=== PATIENT | female | born 1975 | race Caucasian/White ===

== ENCOUNTER 2018-05-30 15:30 | Emergency (ER) | payer OTHER ==
[~2018-05-30] VITALS: Ht 167.6 cm; Wt 80.4 kg
[2018-05-30 15:35] VITALS: Ht 167.6 cm; Wt 80.4 kg
[2018-05-30] MEDS ORDERED: SOD CHLORIDE 0.9% 1,000 ML IV STA (19:41)
--- NOTE | 2018-05-30 19:57 | ERD ---
ER Documentation Chief Complaint Chief Complaint chest tingliing & pressure w/left facial numbness x3days, s/p iron infusion HPI This is a 42-year-old female with a history of thrombocytosis secondary to iron deficiency anemia. The patient states she received an intravenous iron infusion 3 days ago and since then has been having some vague symptoms that have gotten worse she says she gets a bit short of breath when she walks too far but is not having any chest pain.. She also complains of some vague tingling to her left face and upper and lower lips. No weakness or tingling in the arms and legs. She was sent by her doctor for evaluation, Dr. Brittanie RENTERIA IN. ROS All systems reviewed and are negative except as per history of present illness. Medications Home Meds Reported Medications Loratadine* (Loratadine*) 10 Mg Tablet, 10 MG PO DAILY for 30 Days, #30 05/30/18 Lisinopril* (Lisinopril*) 20 Mg Tablet, 20 MG PO DAILY for 30 Days 05/30/18 Atorvastatin Calcium (Atorvastatin Calcium) 20 Mg Tablet, 20 MG PO QHS for 30 Days 05/30/18 Sumatriptan Succinate* (Sumatriptan Succinate*) 100 Mg Tablet, 100 MG PO PRN for HEADACHE 05/30/18 Aspirin (Aspir-Low) 81 Mg Tablet.dr, 81 MG PO DAILY for 30 Days 05/30/18 Ergocalciferol (Vitamin D2) (VITAMIN D2) 50,000 Unit Capsule, 1 CAP PO Q7D for QTUESDAY 05/30/18 Nitroglycerin* (Nitrostat*) 0.4 Mg Tab.subl, 0.4 MG SL Q5MIN PRN for CHEST PAIN, BOTTLE 05/30/18 Nortriptyline Hcl* (Nortriptyline Hcl*) 10 Mg Capsule, 10 MG PO DAILY 05/30/18 Allergies Allergies: Coded Allergies: Penicillins (Verified Allergy, Unknown, 05/30/18) PMhx/Soc History of Surgery: No Anesthesia Reaction: No Hx Neurological Disorder: No Hx Respiratory Disorders: No Hx Cardiac Disorders: No Hx Psychiatric Problems: No Hx Miscellaneous Medical Probl: Yes (ANEMIA) Hx Alcohol Use: No Hx Substance Use: No Hx Tobacco Use: No Smoking Status: Never smoker FmHx Family History: No coronary disease Physical Exam Vitals Vital Signs Date Temp Pulse Resp B/P (MAP) Pulse Ox O2 O2 Flow FiO2 Time Delivery Rate 05/30/18 99.1 97 18 124/86 99 Room Air 22:57 (99) 05/30/18 99.1 106 22 131/91 99 Room Air 21:55 (104) 05/30/18 99.1 104 22 121/85 99 Room Air 20:40 (97) 05/30/18 99.1 85 16 137/93 100 Room Air 19:32 (108) 05/30/18 16 139/80 100 Room Air 18:04 (99) 05/30/18 99.1 135 18 158/97 97 15:35 (117) Physical Exam Const: [Well-developed, well-nourished] Head: [Atraumatic, normocephalic] Eyes: [Normal Conjunctiva, PERRLA, EOMI, normal sclera, no nystagmus] ENT: [Normal External Ears, Nose and Mouth, moist mucus membranes.] Neck: [Full range of motion. No meningismus, no lymphadenopathy.] Resp: [Clear to auscultation bilaterally, no wheezing, rhonchi, rales] Cardio: [Tachycardia, no murmurs, S1 S2 present] Abd: [Soft, non tender x 4, non distended. Normal bowel sounds, no guarding or rebound, no pulsitile abdominal masses or bruits] Skin: [No petechiae or rashes, no ecchymosis , no maculopapular rash] Back: [No midline or flank tenderness] Ext: [No cyanosis, or edema, FROM x 4, normal inspection, neurovascularly intact x 4] Neur: [Awake and alert, STR 5/5 x 4, sensation intact x 4, no focal findings, cerebellum intact] Psych: [Normal Mood and Affect] Result Diagram: 05/30/18191405/30/181914 Results 24 hrs Laboratory Tests Test 05/30/18 19:15 05/30/18 19:22 05/30/18 19:23 05/30/18 19:50 White Blood Count 9.3 10^3/ul Red Blood Count 4.36 10^6/ul Hemoglobin 11.6 g/dl Hematocrit 36.5 % Mean Corpuscular 83.7 fl Volume Mean Corpuscular 26.6 pg Hemoglobin Mean Corpuscular 31.8 g/dl Hemoglobin Concent Red Cell 15.5 % Distribution Width Platelet Count 405 10^3/UL Mean Platelet 8.4 fl Volume Immature 0.300 % Granulocytes % Neutrophils % 51.4 % Lymphocytes % 40.8 % Monocytes % 5.5 % Eosinophils % 1.2 % Basophils % 0.8 % Nucleated Red Blood 0.0 /100WBC Cells % Immature 0.030 10^3/ul Granulocytes # Neutrophils # 4.8 10^3/ul Lymphocytes # 3.8 10^3/ul Monocytes # 0.5 10^3/ul Eosinophils # 0.1 10^3/ul Basophils # 0.1 10^3/ul Nucleated Red Blood 0.0 10^3/ul Cells # Sodium Level 140 mmol/L Potassium Level 4.2 mmol/L Chloride Level 104 mmol/L Carbon Dioxide 25 mmol/L Level Anion Gap 11 Blood Urea Nitrogen 7 mg/dl Creatinine 0.50 mg/dl Est Glomerular > 60 mL/min Filtrat Rate mL/min Glucose Level 164 mg/dl Calcium Level 9.9 mg/dl Troponin I < 0.012 ng/ml Bedside Urine pH 5.5 (LAB) Bedside Urine Negative Protein (LAB) Bedside Urine Negative Glucose (UA) Bedside Urine Negative Ketones (LAB) Bedside Urine Blood 2+ Bedside Urine Negative Nitrite (LAB) Bedside Urine Trace Leukocyte Esterase (L POC Beta HCG, NEGATIVE Qualitative Prothrombin Time 13.4 Sec Prothrombin Time 1.0 Ratio INR International 1.01 Normalized Ratio Activated 27.0 Sec Partial Thromboplas t Time Serum HCG, NEGATIVE Qualitative Current Medications Medications Dose Sig/Devika Start Time Status Last (Trade) Ordered Route PRN Stop Time Admin Dose Reason Admin Sodium 1,000 ml @ Q1H STAT 05/30/18 DC 05/30/18 Chloride 1,000 mls/hr IV 19:41 19:52 05/30/18 20:40 Aspirin 325 mg ONCE ONCE 05/30/18 DC 05/30/18 (Aspirin) PO 20:00 19:53 05/30/18 20:01 IV Flush 10 ml STK-MED 05/30/18 DC 05/30/18 (NS 10 ml) ONCE .ROUTE 21:21 21:21 05/30/18 21:22 Sodium 100 ml @ ud STK-MED 05/30/18 DC 05/30/18 Chloride ONCE .ROUTE 21:21 21:21 05/30/18 21:22 Iohexol 100 ml @ ud STK-MED 05/30/18 DC 05/30/18 ONCE .ROUTE 21: 21:05/30/18 21:22 Procedures/MDM Patient: SUAD KOENIG : 1975 Age: 42 Sex: F MR #: [id number] DOS: 05/30/18 0000 Ordering MD: FADY CAMACHO DO Location: E/R Room/Bed: PROCEDURE: CT angiogram of the chest with contrast. CLINICAL INDICATION: Chest pain. TECHNIQUE: CT angiogram of the chest was obtained using a multi-detector high-resolution CT. Contiguous axial images were obtained during the dynamic injection of 100 cc of Omnipaque 350 intravenous contrast. Coronal and sagittal reformatted images were obtained. 3-D reformatted images were also obtained. Images were reviewed on a PACS workstation. DICOM images are available. One or more of the following dose reduction techniques were used: - Automated exposure control. - Adjustment of the mA and/or kV according to patient size. - Use of iterative reconstruction technique. Exam CTD/vol = 15.74 mGy. Total exam DLP = 532.20 mGy-cm. COMPARISON: None. FINDINGS: The main pulmonary artery followed to the segmental divisions are well opacified. There is no filling defect or evidence of pulmonary embolism. The heart is normal in size. There is no pericardial thickening or effusion. The aorta is of normal course and caliber without evidence of aneurysm or dissection. Bilateral breast implants are present. The visualized thyroid is unremarkable. There are no enlarged axillary lymph nodes. There are no enlarged mediastinal or hilar lymph nodes by CT criteria. There is no parenchymal nodule or consolidation. There is no pleural effusion. The central tracheobronchial tree is within normal limits. Limited evaluation of the upper abdomen is unremarkable. IMPRESSION: No evidence of pulmonary embolism or aortic dissection. .Teddy Skelton MD, Date Time Electronically viewed and signed by .Teddy Skelton MD, MD on 05/30/2018 22:48 .T/ CC: FADY CAMACHO DO [id number] Patient: SUAD KOENIG : 1975 Age: 42 Sex: F MR #: [id number] DOS: 05/30/182015 Ordering MD: FADY CAMACHO DO Location: E/R Room/Bed: PROCEDURE: CT Brain without contrast. CLINICAL INDICATION: Left facial tingling. TECHNIQUE: A CT of the brain without contrast was performed utilizing axial sections from the skull base through the vertex. One or more the following does reduction techniques were utilized: Automated exposure control, adjustment of the mA/ or kV according to patient's size, or use of iterative reconstruction technique. Total exam CTDIvol is 37 MGy and DLP is 634 mGy-cm. DICOM images are available. COMPARISON: None available. FINDINGS: The ventricles and sulci are age-appropriate. There is no intracranial hemorrhage, mass effect or midline shift. No abnormal intra-axial or extra- axial fluid collections are seen. The gutierrez/white matter differentiation is preserved. No acute skull abnormality is noted. The visualized paranasal sinuses are essentially clear. IMPRESSION: 1. No acute intracranial hemorrhage, transcortical infarction or mass effect. If clinical concern persists consider brain MRI. RPTAT: HFN .Britt Soares MD, MD Date Time Electronically viewed and signed by .Britt Soares MD, MD on 05/30/2018 22:31 .N/ CC: FADY CAMACHO DO [id number] EKG: Rate/Rhythm: Sinus tachycardia heart rate 129 QRS, ST, QT: NORMAL CA, QRS, QT] Impression: Sinus tachycardia Patient says she feels completely back to normal. Her heart rate is 98. She has no tingling in the face and feels better and we will walk around the ER if she feels okay we will let her go home. I spoke with Dr. Virgilio BONDS and she was primarily sent here for this unknown tachycardia that she has had. She may be some type of reaction due to the iron infusion she got or perhaps just being volume depleted. She gotten 8 normal saline here and is resolved her tachycardia. There is no evidence of PE. Patient never had any chest pain. She has no abdominal pain no focal neurological complaints consistent with stroke. Patient ambulated around the ER and did not have any difficulty of chest pain or shortness of breath and feels normal. Will discharge home Departure Diagnosis: Primary Impression: Tachycardia Additional Impression: Hypovolemia Condition: Stable FADY CAMACHO DO May 30, 2018 19:57
[2018-05-30] MEDS ORDERED: ASPIRIN 325 MG TAB PO ONE (20:00)
[2018-05-30] MEDS ORDERED: IOHEXOL 100 ML ONE (21:21)
[2018-05-30] MEDS ORDERED: SOD CHLORIDE 0.9% 100 ML ONE (21:21)
[2018-05-30] MEDS ORDERED: LORA10TA3 PO (22:14)
[2018-05-30] MEDS ORDERED: ASPI81TA50 PO (22:14)
[2018-05-30] MEDS ORDERED: SUMA100T4 PO (22:14)
[2018-05-30] MEDS ORDERED: ATOR20TA65 PO (22:14)
[2018-05-30] MEDS ORDERED: LISI-471 PO (22:14)
[2018-05-30] MEDS ORDERED: NITR0.4T39 SL (22:14)
[2018-05-30] MEDS ORDERED: ERGO500013 PO (22:14)
[2018-05-30] MEDS ORDERED: NORT10CA2 PO (22:14)
[2018-05-30 23:24] VITALS: BP 140/94; PULSE 101; RESP 16
== END 2018-05-30 23:30 | disposition home or self-care (01) ==
LOC: E/R 15:30
DX: E86.1 Hypovolemia (principal); R07.9 Chest pain, unspecified; Z79.82 Long term (current) use of aspirin
CPT/HCPCS: 36415; 70450; 71275; 80048; 81003; 81025; 84484; 84703; 85025; 85610; 85730; 93005; 96360; 96361; J7030; Q9967; Z7502; Z7610

== ENCOUNTER 2018-12-07 09:04 | Day surgery (SDC) | payer OTHER ==
[2018-12-07] VITALS (11 sets, daily range): BP systolic 108–166; BP diastolic 61–96; PULSE 58–82; RESP 11–20; Ht 157.5 cm; Wt 81.6 kg
[~2018-12-07] VITALS: Ht 157.5 cm; Wt 81.6 kg
[~2018-12-07 09:04] MED LIST: ASPI81TA48 PO; ATOR20TA65 PO; ERGO500013 PO; LISI-471 PO; LORA10TA3 PO; METO-429 PO; NITR0.4T39 SL; NORT10CA2 PO; OXYB5SYR2 PO; OXYB5TAB22 PO; PROP40TA4 PO; SUMA100T4 PO
[2018-12-07] MEDS ORDERED: CLINDAMYCIN 600 MG/D5W (PMX) 50 ML IVPB ONE ×2 (12:00→14:52)
[2018-12-07] MEDS ORDERED: SOD CHLORIDE 0.9% 1,000 ML IV SCH (12:00)
[2018-12-07] MEDS ORDERED: BUPIVACAINE 0.5%/EPI (SDV) 30 ML INJ ONE (14:39)
[2018-12-07] MEDS ORDERED: MEPERIDINE 100 MG INJ ONE (14:52)
[2018-12-07] MEDS ORDERED: METOCLOPRAMIDE 10 MG INJ ONE (14:52)
[2018-12-07] MEDS ORDERED: ONDANSETRON 4 MG INJ ONE (14:52)
[2018-12-07] MEDS ORDERED: LIDOCAINE 2% (SDV) 5 ML INJ ONE (14:52)
[2018-12-07] MEDS ORDERED: PROPOFOL 20 ML ONE (14:52)
[2018-12-07] MEDS ORDERED: EPHEDrine 25 MG/5 ML SYG IV PRN (16:00)
[2018-12-07] MEDS ORDERED: MEPERIDINE 25 MG INJ IV PRN (16:00)
[2018-12-07] MEDS ORDERED: METOCLOPRAMIDE 10 MG INJ IV PRN (16:00)
[2018-12-07] MEDS ORDERED: MIDAZOLAM 1 MG/ML 2 ML INJ IV PRN (16:00)
[2018-12-07] MEDS ORDERED: HYDROmorphONE 1 MG/5 ML IV SYRINGE IV PRN ×3 (16:00)
[2018-12-07] MEDS ORDERED: DIPHENHYDRAMINE 50 MG INJ IV PRN (16:00)
[2018-12-07] MEDS ORDERED: hydrALAzine 20 MG INJ IV PRN (16:00)
[2018-12-07] MEDS ORDERED: OXYCODONE/ACETAMINOPHEN (5/325) TAB PO PRN ×2 (16:00)
[2018-12-07] MEDS ORDERED: FENTAnyl 50 MCG/ML VIAL IV PRN ×3 (16:00)
[2018-12-07] MEDS ORDERED: ONDANSETRON 4 MG INJ IV PRN ×2 (16:00→16:30)
[2018-12-07] MEDS ORDERED: LABETALOL HCL 20MG INJ IV PRN (16:00)
[2018-12-07] MEDS ORDERED: KETOROLAC 30 MG INJ IV PRN (16:30)
[2018-12-07] MEDS ORDERED: HYDROCODONE/APAP (5/325) TAB PO PRN (16:30)
[2018-12-07] MEDS ORDERED: IBUPROFEN 600 MG TAB PO PRN (22:00)
== END 2018-12-07 17:53 | disposition home or self-care (01) ==
LOC: SDS 09:04
PROVIDERS: ATTEND Surgery
DX: N62 Hypertrophy of breast (principal); N60.11 Diffuse cystic mastopathy of right breast; I10 Essential (primary) hypertension; E78.5 Hyperlipidemia, unspecified; E66.9 Obesity, unspecified; Z68.32 Body mass index [BMI] 32.0-32.9, adult
CPT/HCPCS: 19125; 88307; J2175; J2405; J2765; Z7512; Z7610